=== PATIENT | male | born 1955 | race Caucasian/White ===

== ENCOUNTER 2024-08-31 10:44 | Outpatient (CLI) | payer OTHER | END 2024-08-31 10:45 | disposition home or self-care (01) | LOC: LABBT 10:44 | PROVIDERS: ATTEND Student in an Organized Health Care Education/Training Program | DX: Z01.818 Encounter for other preprocedural examination (principal); I25.10 Atherosclerotic heart disease of native coronary artery without angina pectoris | CPT/HCPCS: 71046; 93005; 93010 ==